=== PATIENT | female | born 1940 | race Caucasian/White ===

== ENCOUNTER 2019-11-02 13:13 | Inpatient (IN) ==
[2019-11-02 16:48] LABS: Basophils % 0.2 % (0.0-0.8); Eosinophils % 0.2 % (0.00-10.9); Hematocrit 30.9 VOL% (35.7-47.0); Hemoglobin 9.9 GM/DL (12.0-16.0); Immature Granulocytes % 0.8 %; Immature Granulocytes Absolute 0.05 #; Lymphocytes # 0.4 10*3/uL (1.4-4.0); Lymphocytes % 5.8 % (21.3-54.2); Mean Corpuscular Volume 83.1 FL (87-102); Monocytes % 0.9 % (1.7-12.7); Neutrophils % 92.1 % (38.7-73.9); Platelet Count 216 T/CUMM (130-400); Red Blood Count 3.72 MC/CUMM (3.8-5.5); Red Cell Distribution Width 14.5 % (9.3-17.3); White Blood Count 6.6 T/CUMM (4-12)
[2019-11-02 17:10] LABS: Albumin 2.5 G/DL (3.4-5.0); Bilirubin,Total 0.4 MG/DL (0.2-1.0); Calcium 8.7 MG/DL (8.5-10.1); Osmolality,Calculated 269.9 MOS/KG (273-304); Total Protein 6.6 G/DL (6.4-8.3)
[2019-11-02] MEDS ORDERED: ACETAMINOPHEN 325 MG TABLET PO PRN (17:22)
[2019-11-02] MEDS ORDERED: ONDANSETRON 4 MG/2 ML VIAL IV PRN (17:22)
[2019-11-02] MEDS: ENOXAPARIN 30 MG/0.3 ML SYRINGE SUBCUT SCH (17:39)
[2019-11-02 18:11] LABS: ABG Base Excess -9.9 MMOL/L (-2.5-2.5); ABG HCO3 16.5 MMOL/L (20-26); ABG Oxygen Saturation 96.7 % (95-100); ABG PCO2 27.4 MM HG (35-48); ABG PH 7.339 (7.35-7.45); ABG PO2 90.5 MM HG (80-95); ABG TCO2 13.5 MMOL/L (23-27)
[2019-11-02] MEDS ORDERED: POTASSIUM CHLORIDE 20 MEQ TABLET PO PRN (18:15)
[2019-11-02] MEDS ORDERED: GLUCAGON 1 MG VIAL IM PRN (18:15)
[2019-11-02] MEDS ORDERED: DEXTROSE 10% 250 ML BAG IV PRN (18:15)
[2019-11-02] MEDS ORDERED: MAGNESIUM SULF RIDER 2 GM in PREMIX 1 EACH IV PRN (18:15)
[2019-11-02] MEDS ORDERED: MAGNESIUM SULF RIDER 4 GM in PREMIX 1 EACH IV PRN (18:15)
[2019-11-02] MEDS ORDERED: INSULIN LISPRO 100 UNIT/ML ONE (19:07)
[2019-11-02] MEDS: INSULIN LISPRO 100 UNIT/ML SUBCUT SCH ×2 (19:12→22:03)
[2019-11-02 22:10] LABS: Band Neutrophils 2 % (0-10); Lymphocytes 3 % (20-55); Platelet Estimate Normal; Segmented Neutrophils 95 % (50-85); Total Cells Counted 100
[2019-11-03 00:33] LABS: Hematocrit 27.1 VOL% (35.7-47.0); Immature Granulocytes % 1.2 %; Immature Granulocytes Absolute 0.07 #; Lymphocytes # 0.6 10*3/uL (1.4-4.0); Lymphocytes % 10.7 % (21.3-54.2); Mean Corpuscular HGB Conc 33.2 GM/DL (32-36); Mean Corpuscular Volume 81.1 FL (87-102); Mean Platelet Volume 10.3 FL (9.6-12.0); Monocytes % 2.3 % (1.7-12.7); Neutrophils % 85.8 % (38.7-73.9); Platelet Count 197 T/CUMM (130-400); Red Blood Count 3.34 MC/CUMM (3.8-5.5); Red Cell Distribution Width 14.4 % (9.3-17.3); White Blood Count 5.6 T/CUMM (4-12)
[2019-11-03 01:33] LABS: Alanine Aminotransferase 16 U/L (13-56); Albumin 2.4 G/DL (3.4-5.0); Alkaline Phosphatase 82 U/L (45-117); Aspartate Amino Transferase 19 U/L (0-37); Bilirubin,Total < 0.39 MG/DL (0.2-1.0); Blood Urea Nitrogen 46 MG/DL (7-18); Calcium 8.4 MG/DL (8.5-10.1); Estimated Glom Filtration Rate 14 ML/MIN; Glucose 258 MG/DL (74-106); Osmolality,Calculated 267.8 MOS/KG (273-304); Total Protein 6.3 G/DL (6.4-8.3)
[2019-11-03 04:09] LABS: Apearance,Urine CLEAR (Clear); Bilirubin,Urine Negative (Negative); Blood, Urine Moderate mg/dL (Negative); Glucose,Urine (UA) 150 mg/dL (Negative); Hyaline Casts,Urine 11 /LPF (0-3); Ketones,Urine Negative (Negative); Mucus,Urine Occasional /LPF (Occasional); Nitrite,Urine Negative (Negative); Protein,Urine Negative; RBC,Urine 6 /HPF (0-4); Squamous Epithelial Cell,Urine Occasional /HPF (0-10); Urine Color Yellow (Yellow); Urine Urobilinogen < 2.0 EU/DL (0.2-1.0); WBC,Urine 5 /HPF (0-6)
[2019-11-03] MEDS: PANTOPRAZOLE 40 MG TABLET PO SCH (08:48)
[2019-11-03] MEDS: INSULIN LISPRO 100 UNIT/ML SUBCUT SCH ×4 (08:48→20:15)
[2019-11-03] MEDS: FUROSEMIDE 40 MG/4 ML VIAL IV SCH ×2 (08:49→15:51)
[2019-11-03] MEDS: carvediloL 3.125 MG TABLET PO SCH ×2 (12:49→16:49)
[2019-11-03] MEDS: ASPIRIN EC 81 MG TABLET PO SCH (12:49)
[2019-11-03] MEDS: ALBUTEROL/IPRATROPIUM 3 ML NEB RESP TX SCH ×2 (13:45→19:33)
[2019-11-03] MEDS: ENOXAPARIN 30 MG/0.3 ML SYRINGE SUBCUT SCH (16:49)
[2019-11-03] MEDS: SIMVASTATIN 20 MG TABLET PO SCH (20:15)
[2019-11-04] MEDS: ALBUTEROL/IPRATROPIUM 3 ML NEB RESP TX SCH ×4 (00:15→19:59)
[2019-11-04 04:52] LABS: Basophils % 0.1 % (0.0-0.8); Eosinophils % 0.2 % (0.00-10.9); Hematocrit 28.7 VOL% (35.7-47.0); Hemoglobin 9.4 GM/DL (12.0-16.0); Immature Granulocytes % 0.7 %; Immature Granulocytes Absolute 0.07 #; Lymphocytes # 1.2 10*3/uL (1.4-4.0); Lymphocytes % 11.4 % (21.3-54.2); Mean Corpuscular HGB Conc 32.8 GM/DL (32-36); Mean Corpuscular Volume 80.8 FL (87-102); Mean Platelet Volume 10.5 FL (9.6-12.0); Monocytes % 4.9 % (1.7-12.7); Neutrophils % 82.7 % (38.7-73.9); Platelet Count 236 T/CUMM (130-400); Red Blood Count 3.55 MC/CUMM (3.8-5.5); Red Cell Distribution Width 14.6 % (9.3-17.3); White Blood Count 10.5 T/CUMM (4-12)
[2019-11-04 05:18] LABS: Albumin 2.6 G/DL (3.4-5.0); Bilirubin,Total 0.9 MG/DL (0.2-1.0); Calcium 8.5 MG/DL (8.5-10.1); Osmolality,Calculated 275.4 MOS/KG (273-304); Total Protein 6.4 G/DL (6.4-8.3)
[2019-11-04] MEDS: INSULIN LISPRO 100 UNIT/ML SUBCUT SCH ×4 (08:49→20:37)
[2019-11-04] MEDS: ASPIRIN EC 81 MG TABLET PO SCH (08:51)
[2019-11-04] MEDS: PANTOPRAZOLE 40 MG TABLET PO SCH (08:51)
[2019-11-04] MEDS: FUROSEMIDE 40 MG/4 ML VIAL IV SCH ×2 (08:51→16:27)
[2019-11-04] MEDS: carvediloL 3.125 MG TABLET PO SCH ×2 (08:51→16:26)
[2019-11-04] MEDS ORDERED: metOLazone 5 MG TABLET PO SCH (12:00)
[2019-11-04] MEDS: ENOXAPARIN 30 MG/0.3 ML SYRINGE SUBCUT SCH (16:30)
[2019-11-04 20:23] LABS: % Iron Saturation 7.3 % (18-50)
[2019-11-04] MEDS: SIMVASTATIN 20 MG TABLET PO SCH (20:37)
[2019-11-05] MEDS: ALBUTEROL/IPRATROPIUM 3 ML NEB RESP TX SCH ×3 (00:53→13:07)
[2019-11-05 04:39] LABS: Basophils % 0.3 % (0.0-0.8); Eosinophils # 0.1 10*3/uL (0.0-0.87); Eosinophils % 1.2 % (0.00-10.9); Hematocrit 29.8 VOL% (35.7-47.0); Hemoglobin 9.5 GM/DL (12.0-16.0); Immature Granulocytes % 0.7 %; Immature Granulocytes Absolute 0.05 #; Lymphocytes # 1.3 10*3/uL (1.4-4.0); Lymphocytes % 17.9 % (21.3-54.2); Mean Corpuscular HGB Conc 31.9 GM/DL (32-36); Mean Corpuscular Volume 82.5 FL (87-102); Mean Platelet Volume 9.9 FL (9.6-12.0); Monocytes % 9.6 % (1.7-12.7); Neutrophils % 70.3 % (38.7-73.9); Platelet Count 231 T/CUMM (130-400); Red Blood Count 3.61 MC/CUMM (3.8-5.5); Red Cell Distribution Width 14.8 % (9.3-17.3); White Blood Count 7.2 T/CUMM (4-12)
[2019-11-05 04:46] LABS: Albumin 2.5 G/DL (3.4-5.0); Bilirubin,Total 0.9 MG/DL (0.2-1.0); Calcium 8.9 MG/DL (8.5-10.1); Total Protein 6.5 G/DL (6.4-8.3)
[2019-11-05] MEDS: FUROSEMIDE 40 MG/4 ML VIAL IV SCH (09:09)
[2019-11-05] MEDS: PANTOPRAZOLE 40 MG TABLET PO SCH (09:10)
[2019-11-05] MEDS: carvediloL 3.125 MG TABLET PO SCH (09:10)
[2019-11-05] MEDS: ASPIRIN EC 81 MG TABLET PO SCH (09:10)
[2019-11-05] MEDS: INSULIN LISPRO 100 UNIT/ML SUBCUT SCH ×2 (09:11→12:19)
[2019-11-05 12:03] VITALS: BP 150/65
[2019-11-05] MEDS ORDERED: carvediloL 6.25 MG TABLET PO SCH (21:00)
[2019-11-06] MEDS ORDERED: FUROSEMIDE 40 MG TABLET PO SCH (09:00)
== END 2019-11-05 15:14 | disposition home or self-care (01) | DRG 291 ==
LOC: N.TELEN 13:36 → SUATTDRO 14:53 → SUPCPDRO 14:53
PROVIDERS: ADMIT Internal Medicine; ATTEND Internal Medicine

== ENCOUNTER 2021-07-09 16:07 | Inpatient (IN) ==
[2021-07-09 17:01] LABS: Basophils % 0.4 % (0.0-0.8); Eosinophils # 0.2 10*3/uL (0.0-0.87); Eosinophils % 2.5 % (0.00-10.9); Hematocrit 33.8 VOL% (35.7-47.0); Hemoglobin 9.4 GM/DL (12.0-16.0); Immature Granulocytes % 0.5 %; Immature Granulocytes Absolute 0.04 #; Lymphocytes # 1.2 10*3/uL (1.4-4.0); Lymphocytes % 15.1 % (21.3-54.2); Mean Corpuscular HGB Conc 27.8 GM/DL (32-36); Mean Corpuscular Volume 79.2 FL (87-102); Monocytes % 8.2 % (1.7-12.7); Neutrophils % 73.3 % (38.7-73.9); Platelet Count 205 T/CUMM (130-400); Red Blood Count 4.27 MC/CUMM (3.8-5.5); Red Cell Distribution Width 18.1 % (9.3-17.3); White Blood Count 7.7 T/CUMM (4-12)
[2021-07-09 17:18] LABS: Bilirubin,Urine Negative (Negative); Blood, Urine Negative (Negative); Glucose,Urine (UA) Negative (Negative); Hyaline Casts,Urine 8 /LPF (0-3); Ketones,Urine Negative (Negative); Mucus,Urine Occasional /LPF (Occasional); Nitrite,Urine Negative (Negative); Protein,Urine Negative; RBC,Urine 1 /HPF (0-4); Squamous Epithelial Cell,Urine Occasional /HPF (0-10); Urine Appearance CLEAR (Clear); Urine Color Yellow (Yellow); Urine Specific Gravity 1.006 (1.001-1.035); Urine Urobilinogen < 2.0 EU/DL (0.2-1.0)
[2021-07-09 17:24] LABS: Albumin 3.2 G/DL (3.4-5.0); Bilirubin,Total 1.6 MG/DL (0.20-1.00); Calcium 9.8 MG/DL (8.5-10.1); Osmolality,Calculated 281.8 MOS/KG (273-304); Potassium 3.3 MMOL/L (3.5-5.1); Total Protein 7.3 G/DL (6.4-8.2)
[2021-07-09] MEDS ORDERED: DEXTROSE 50% 25 GM/50 ML VIAL IV PRN (20:21)
[2021-07-09] MEDS ORDERED: ACETAMINOPHEN 325 MG TABLET PO PRN (20:21)
[2021-07-09] MEDS ORDERED: GLUCAGON 1 MG VIAL IM PRN (20:21)
[2021-07-09] MEDS ORDERED: PNEUMOCOCCAL VACCINE (13 VALENT) 0.5 ML SYRINGE IM ONE (21:40)
[2021-07-09] MEDS: DOCUSATE SODIUM 100 MG CAPSULE PO SCH (23:09)
[2021-07-09] MEDS: ENOXAPARIN 30 MG/0.3 ML SYRINGE SUBCUT SCH (23:10)
[2021-07-09] MEDS: SODIUM CHLORIDE 0.9% 1,000 ML IV SCH (23:21)
[2021-07-10] MEDS: INSULIN REGULAR 100 UNIT/ML SUBCUT SCH ×4 (00:36→18:21)
[2021-07-10] MEDS: ALBUTEROL/IPRATROPIUM 3 ML NEB RESP TX SCH ×7 (00:44→23:00)
[2021-07-10] MEDS: ONDANSETRON 4 MG/2 ML VIAL IV PRN (05:00)
[2021-07-10 05:41] LABS: Albumin 2.7 G/DL (3.4-5.0); Calcium 9.4 MG/DL (8.5-10.1); Osmolality,Calculated 282.5 MOS/KG (273-304); Potassium 3.8 MMOL/L (3.5-5.1); Risk Ratio 2.05; Total Protein 6.8 G/DL (6.4-8.2); VLDL Cholesterol 12.8 MG/DL
[2021-07-10 05:58] LABS: Basophils % 0.5 % (0.0-0.8); Eosinophils # 0.3 10*3/uL (0.0-0.87); Eosinophils % 3.6 % (0.00-10.9); Hematocrit 31.4 VOL% (35.7-47.0); Hemoglobin 9.1 GM/DL (12.0-16.0); Immature Granulocytes % 0.3 %; Immature Granulocytes Absolute 0.02 #; Lymphocytes # 1.4 10*3/uL (1.4-4.0); Mean Corpuscular Volume 78.3 FL (87-102); Mean Platelet Volume 11.9 FL (9.6-12.0); Neutrophils % 65.6 % (38.7-73.9); Platelet Count 148 T/CUMM (130-400); Red Blood Count 4.01 MC/CUMM (3.8-5.5); Red Cell Distribution Width 18.2 % (9.3-17.3); White Blood Count 7.5 T/CUMM (4-12)
[2021-07-10] MEDS ORDERED: traMADol 50 MG TABLET PO PRN (07:34)
[2021-07-10] MEDS ORDERED: glyBURIDE 5 MG TABLET PO SCH (09:00)
[2021-07-10] MEDS ORDERED: FUROSEMIDE 40 MG TABLET PO SCH (09:00)
[2021-07-10] MEDS: prednisoLONE ACETATE 1% OPH SUSP 5 ML BOTTLE LEFT EYE SCH (09:53)
[2021-07-10] MEDS: PANTOPRAZOLE 40 MG TABLET PO SCH (09:54)
[2021-07-10] MEDS: carvediloL 3.125 MG TABLET PO SCH ×2 (09:54→22:23)
[2021-07-10] MEDS: sitaGLIPtin 25 MG TABLET PO SCH (09:54)
[2021-07-10] MEDS: DOCUSATE SODIUM 100 MG CAPSULE PO SCH ×2 (09:54→22:23)
[2021-07-10] MEDS: GABAPENTIN 400 MG CAPSULE PO SCH ×2 (09:54→22:22)
[2021-07-10] MEDS: MULTIVITAMIN (OCUVITE) TABLET PO SCH ×2 (09:54→22:22)
[2021-07-10] MEDS: FUROSEMIDE 20 MG/2 ML VIAL IV SCH ×2 (09:54→10:43)
[2021-07-10] MEDS: ASPIRIN EC 81 MG TABLET PO SCH (09:55)
[2021-07-10] MEDS ORDERED: GLUCAGON 1 MG VIAL IM PRN (16:02)
[2021-07-10] MEDS ORDERED: DEXTROSE 50% 25 GM/50 ML VIAL IV PRN (16:02)
[2021-07-10] MEDS: HYDROmorphone 2 MG/1 ML VIAL IV PRN (17:34)
[2021-07-10] MEDS: SIMVASTATIN 20 MG TABLET PO SCH (22:23)
[2021-07-10] MEDS: ENOXAPARIN 30 MG/0.3 ML SYRINGE SUBCUT SCH (22:24)
[2021-07-11] MEDS: HYDROmorphone 2 MG/1 ML VIAL IV PRN (00:14)
[2021-07-11] MEDS: INSULIN REGULAR 100 UNIT/ML SUBCUT SCH ×4 (00:21→18:22)
[2021-07-11] MEDS: ONDANSETRON 4 MG/2 ML VIAL IV PRN (03:11)
[2021-07-11] MEDS: SODIUM CHLORIDE 0.9% 1,000 ML IV SCH (03:16)
[2021-07-11] MEDS: ALBUTEROL/IPRATROPIUM 3 ML NEB RESP TX SCH ×5 (06:47→20:31)
[2021-07-11 06:53] LABS: Albumin 2.8 G/DL (3.4-5.0); Bilirubin,Direct 0.31 MG/DL (0.0-0.20); Bilirubin,Indirect 1.9 MG/DL (0.0-1.0); Bilirubin,Total 2.2 MG/DL (0.20-1.00); Total Protein 6.8 G/DL (6.4-8.2)
[2021-07-11] MEDS ORDERED: GLUCAGON 1 MG VIAL IM PRN (09:05)
[2021-07-11] MEDS ORDERED: DEXTROSE 50% 25 GM/50 ML VIAL IV PRN (09:05)
[2021-07-11] MEDS: carvediloL 3.125 MG TABLET PO SCH ×2 (09:24→22:36)
[2021-07-11] MEDS: FUROSEMIDE 40 MG/4 ML VIAL IV SCH ×2 (09:24→16:44)
[2021-07-11] MEDS: prednisoLONE ACETATE 1% OPH SUSP 5 ML BOTTLE LEFT EYE SCH (09:24)
[2021-07-11] MEDS: GABAPENTIN 400 MG CAPSULE PO SCH ×2 (09:25→22:35)
[2021-07-11] MEDS: PANTOPRAZOLE 40 MG TABLET PO SCH (09:25)
[2021-07-11] MEDS: sitaGLIPtin 25 MG TABLET PO SCH (09:25)
[2021-07-11] MEDS: DOCUSATE SODIUM 100 MG CAPSULE PO SCH ×2 (09:25→22:35)
[2021-07-11] MEDS: ISOSORBIDE MONONITRATE 30 MG TABLET PO SCH (09:25)
[2021-07-11] MEDS: ASPIRIN EC 81 MG TABLET PO SCH (09:25)
[2021-07-11] MEDS: MULTIVITAMIN (OCUVITE) TABLET PO SCH ×2 (09:25→22:35)
[2021-07-11] MEDS ORDERED: traMADol 50 MG TABLET PO PRN (16:22)
[2021-07-11] MEDS: ENOXAPARIN 30 MG/0.3 ML SYRINGE SUBCUT SCH (22:35)
[2021-07-11] MEDS: SIMVASTATIN 20 MG TABLET PO SCH (22:35)
[2021-07-12] MEDS: INSULIN REGULAR 100 UNIT/ML SUBCUT SCH ×4 (00:03→18:28)
[2021-07-12] MEDS: ALBUTEROL/IPRATROPIUM 3 ML NEB RESP TX SCH ×5 (00:23→16:24)
[2021-07-12] MEDS: HYDROmorphone 2 MG/1 ML VIAL IV PRN (02:16)
[2021-07-12] MEDS: ONDANSETRON 4 MG/2 ML VIAL IV PRN (02:19)
[2021-07-12] MEDS: MULTIVITAMIN (OCUVITE) TABLET PO SCH (09:15)
[2021-07-12] MEDS: GABAPENTIN 400 MG CAPSULE PO SCH (09:15)
[2021-07-12] MEDS: sitaGLIPtin 25 MG TABLET PO SCH (09:15)
[2021-07-12] MEDS: FUROSEMIDE 40 MG/4 ML VIAL IV SCH ×2 (09:15→17:05)
[2021-07-12] MEDS: DOCUSATE SODIUM 100 MG CAPSULE PO SCH (09:16)
[2021-07-12] MEDS: carvediloL 3.125 MG TABLET PO SCH (09:16)
[2021-07-12] MEDS: ISOSORBIDE MONONITRATE 30 MG TABLET PO SCH (09:16)
[2021-07-12] MEDS: PANTOPRAZOLE 40 MG TABLET PO SCH (09:16)
[2021-07-12] MEDS: ASPIRIN EC 81 MG TABLET PO SCH (09:16)
[2021-07-12] MEDS: prednisoLONE ACETATE 1% OPH SUSP 5 ML BOTTLE LEFT EYE SCH (10:36)
[2021-07-12] MEDS ORDERED: TEMAZEPAM 7.5 MG CAPSULE PO PRN (13:13)
[2021-07-12] MEDS ORDERED: KETOROLAC 15 MG/1 ML VIAL IV ONE (13:13)
[2021-07-12 17:29] VITALS: BP 128/68
[2021-07-12] MEDS ORDERED: FAMOTIDINE 20 MG TABLET PO SCH (21:00)
[2021-07-13] MEDS ORDERED: predniSONE 5 MG TABLET PO SCH (09:00)
== END 2021-07-12 18:50 | disposition home health service (06) | DRG 292 ==
LOC: N.EDINP 16:07 → N.ED 16:07 → N.5E 19:53
PROVIDERS: ADMIT Family Medicine; ATTEND Family Medicine

== ENCOUNTER 2021-07-19 13:23 | Inpatient (IN) ==
[2021-07-19] MEDS ORDERED: FUROSEMIDE 100 MG/10 ML VIAL IV STA (14:15)
[2021-07-19 15:37] LABS: Bacteria,Urine Occasional /HPF (Few); Bilirubin,Urine Negative (Negative); Blood, Urine Negative (Negative); Glucose,Urine (UA) Negative (Negative); Hyaline Casts,Urine 18 /LPF (0-3); Ketones,Urine Negative (Negative); Mucus,Urine Occasional /LPF (Occasional); Nitrite,Urine Negative (Negative); Protein,Urine Negative; RBC,Urine 1 /HPF (0-4); Squamous Epithelial Cell,Urine Occasional /HPF (0-10); Urine Appearance CLEAR (Clear); Urine Color Yellow (Yellow); Urine Specific Gravity 1.011 (1.001-1.035); Urine Urobilinogen < 2.0 EU/DL (0.2-1.0)
[2021-07-19] MEDS ORDERED: GLUCAGON 1 MG VIAL IM PRN (16:00)
[2021-07-19] MEDS ORDERED: POTASSIUM CHLORIDE 20 MEQ TABLET PO PRN (16:00)
[2021-07-19] MEDS ORDERED: MAGNESIUM SULF RIDER 2 GM/50 ML PREMIX IV PRN (16:00)
[2021-07-19] MEDS ORDERED: MAGNESIUM SULF RIDER 4 GM/100 ML PREMIX IV PRN (16:00)
[2021-07-19] MEDS ORDERED: DEXTROSE 50% 25 GM/50 ML VIAL IV PRN (16:00)
[2021-07-19 16:04] LABS: Albumin 2.9 G/DL (3.4-5.0); Basophils % 0.5 % (0.0-0.8); Bilirubin,Total 1.7 MG/DL (0.20-1.00); Eosinophils # 0.2 10*3/uL (0.0-0.87); Eosinophils % 2.4 % (0.00-10.9); Hematocrit 31.5 VOL% (35.7-47.0); Immature Granulocytes % 0.3 %; Immature Granulocytes Absolute 0.02 #; Lymphocytes # 0.9 10*3/uL (1.4-4.0); Lymphocytes % 14.4 % (21.3-54.2); Mean Corpuscular HGB Conc 28.6 GM/DL (32-36); Mean Corpuscular Volume 76.6 FL (87-102); Mean Platelet Volume 11.6 FL (9.6-12.0); Monocytes % 11.1 % (1.7-12.7); Neutrophils % 71.3 % (38.7-73.9); Osmolality,Calculated 287.8 MOS/KG (273-304); Platelet Count 198 T/CUMM (130-400); Potassium 4.6 MMOL/L (3.5-5.1); Red Blood Count 4.11 MC/CUMM (3.8-5.5); Red Cell Distribution Width 18.5 % (9.3-17.3); Total Protein 7.3 G/DL (6.4-8.2); White Blood Count 6.3 T/CUMM (4-12)
[2021-07-19 16:06] LABS: Anisocytosis 2+; Elliptocytes Few; Hypochromasia 1+; Macrocytosis 1+; Microcytosis 2+; Platelet Estimate Normal; Poikilocytosis Few; Polychromasia 1+
[2021-07-19] MEDS: INSULIN LISPRO 100 UNIT/ML SUBCUT SCH ×2 (17:05→21:01)
[2021-07-19] MEDS: carvediloL 3.125 MG TABLET PO SCH (21:00)
[2021-07-19] MEDS: FAMOTIDINE 20 MG TABLET PO SCH (21:00)
[2021-07-19] MEDS: GABAPENTIN 400 MG CAPSULE PO SCH (21:00)
[2021-07-19] MEDS: MULTIVITAMIN (OCUVITE) TABLET PO SCH (21:00)
[2021-07-19] MEDS: SIMVASTATIN 20 MG TABLET PO SCH (21:01)
[2021-07-19] MEDS: ONDANSETRON 4 MG/2 ML VIAL IV PRN (21:03)
[2021-07-19] MEDS: traMADol 50 MG TABLET PO PRN (22:25)
[2021-07-20] MEDS: MORPHINE 2 MG/1 ML SYRINGE IV PRN ×2 (03:54→19:34)
[2021-07-20 06:24] LABS: Basophils % 0.7 % (0.0-0.8); Eosinophils # 0.2 10*3/uL (0.0-0.87); Hematocrit 28.5 VOL% (35.7-47.0); Hemoglobin 8.2 GM/DL (12.0-16.0); Immature Granulocytes % 0.4 %; Immature Granulocytes Absolute 0.02 #; Lymphocytes # 1.1 10*3/uL (1.4-4.0); Lymphocytes % 19.6 % (21.3-54.2); Mean Corpuscular HGB Conc 28.8 GM/DL (32-36); Monocytes % 15.4 % (1.7-12.7); Neutrophils % 60.9 % (38.7-73.9); Platelet Count 161 T/CUMM (130-400); Red Cell Distribution Width 19.3 % (9.3-17.3); White Blood Count 5.7 T/CUMM (4-12)
[2021-07-20 06:41] LABS: Hypochromasia 1+; Microcytosis 2+; Ovalocytes Few; Polychromasia Slight; Target Cells Slight
[2021-07-20 06:42] LABS: Platelet Estimate Adequate
[2021-07-20 07:32] LABS: Risk Ratio 2.03
[2021-07-20 07:39] LABS: Albumin 2.6 G/DL (3.4-5.0); Bilirubin,Direct 0.45 MG/DL (0.0-0.20); Bilirubin,Indirect 1.1 MG/DL (0.0-1.0); Bilirubin,Total 1.5 MG/DL (0.20-1.00); Calcium 9.7 MG/DL (8.5-10.1); Osmolality,Calculated 294.3 MOS/KG (273-304); Potassium 3.7 MMOL/L (3.5-5.1); Total Protein 6.6 G/DL (6.4-8.2)
[2021-07-20] MEDS: INSULIN LISPRO 100 UNIT/ML SUBCUT SCH ×4 (08:14→22:22)
[2021-07-20] MEDS: GABAPENTIN 400 MG CAPSULE PO SCH ×2 (09:44→21:07)
[2021-07-20] MEDS: ISOSORBIDE MONONITRATE 30 MG TABLET PO SCH (09:44)
[2021-07-20] MEDS: glyBURIDE 5 MG TABLET PO SCH (09:44)
[2021-07-20] MEDS: carvediloL 3.125 MG TABLET PO SCH ×2 (09:44→21:07)
[2021-07-20] MEDS: sitaGLIPtin 25 MG TABLET PO SCH (09:44)
[2021-07-20] MEDS: MULTIVITAMIN (OCUVITE) TABLET PO SCH ×2 (09:44→21:07)
[2021-07-20] MEDS: ASPIRIN EC 81 MG TABLET PO SCH (09:44)
[2021-07-20] MEDS: prednisoLONE ACETATE 1% OPH SUSP 5 ML BOTTLE LEFT EYE SCH (09:45)
[2021-07-20] MEDS: FUROSEMIDE 40 MG/4 ML VIAL IV SCH ×2 (09:45→17:03)
[2021-07-20] MEDS: ONDANSETRON 4 MG/2 ML VIAL IV PRN ×2 (13:35→19:35)
[2021-07-20] MEDS: SIMVASTATIN 20 MG TABLET PO SCH (21:07)
[2021-07-20] MEDS: FAMOTIDINE 20 MG TABLET PO SCH (21:07)
[2021-07-21] MEDS: ONDANSETRON 4 MG/2 ML VIAL IV PRN (00:15)
[2021-07-21] MEDS: MORPHINE 2 MG/1 ML SYRINGE IV PRN (00:16)
[2021-07-21 06:23] LABS: Calcium 10.1 MG/DL (8.5-10.1); Osmolality,Calculated 288.4 MOS/KG (273-304); Potassium 3.7 MMOL/L (3.5-5.1)
[2021-07-21 07:21] LABS: Basophils # 0.1 10*3/uL (0.0-0.2); Basophils % 0.6 % (0.0-0.8); Eosinophils # 0.2 10*3/uL (0.0-0.87); Eosinophils % 2.2 % (0.00-10.9); Hematocrit 32.8 VOL% (35.7-47.0); Immature Granulocytes % 0.4 %; Immature Granulocytes Absolute 0.04 #; Lymphocytes # 1.4 10*3/uL (1.4-4.0); Lymphocytes % 15.5 % (21.3-54.2); Mean Corpuscular HGB Conc 28.7 GM/DL (32-36); Mean Platelet Volume 11.1 FL (9.6-12.0); Monocytes % 12.5 % (1.7-12.7); Neutrophils % 68.8 % (38.7-73.9); Platelet Count 165 T/CUMM (130-400); Red Blood Count 4.26 MC/CUMM (3.8-5.5); Red Cell Distribution Width 18.4 % (9.3-17.3); White Blood Count 8.9 T/CUMM (4-12)
[2021-07-21 07:23] LABS: Hemoglobin 9.4 GM/DL (12.0-16.0)
[2021-07-21 07:38] LABS: Hypochromasia 2+; Microcytosis 2+; Ovalocytes Few; Platelet Estimate Adequate
[2021-07-21] MEDS: FUROSEMIDE 40 MG/4 ML VIAL IV SCH ×2 (09:06→16:54)
[2021-07-21] MEDS: INSULIN LISPRO 100 UNIT/ML SUBCUT SCH ×4 (09:31→21:15)
[2021-07-21] MEDS: carvediloL 3.125 MG TABLET PO SCH ×2 (09:32→21:15)
[2021-07-21] MEDS: GABAPENTIN 400 MG CAPSULE PO SCH ×2 (09:32→21:15)
[2021-07-21] MEDS: MULTIVITAMIN (OCUVITE) TABLET PO SCH ×2 (09:32→21:15)
[2021-07-21] MEDS: glyBURIDE 5 MG TABLET PO SCH (09:32)
[2021-07-21] MEDS: ISOSORBIDE MONONITRATE 30 MG TABLET PO SCH (09:32)
[2021-07-21] MEDS: ASPIRIN EC 81 MG TABLET PO SCH (09:32)
[2021-07-21] MEDS: sitaGLIPtin 25 MG TABLET PO SCH (09:32)
[2021-07-21] MEDS: prednisoLONE ACETATE 1% OPH SUSP 5 ML BOTTLE LEFT EYE SCH (09:32)
[2021-07-21] MEDS: traMADol 50 MG TABLET PO PRN (10:00)
[2021-07-21] MEDS: CLORAZEPATE 3.75 MG TABLET PO SCH ×2 (14:42→21:56)
[2021-07-21] MEDS: ONDANSETRON 4 MG/2 ML VIAL IV SCH ×2 (15:17→21:56)
[2021-07-21] MEDS: FAMOTIDINE 20 MG TABLET PO SCH (21:15)
[2021-07-21] MEDS: SIMVASTATIN 20 MG TABLET PO SCH (21:15)
[2021-07-22] MEDS: ONDANSETRON 4 MG/2 ML VIAL IV SCH ×4 (04:10→22:15)
[2021-07-22] MEDS: CLORAZEPATE 3.75 MG TABLET PO SCH ×3 (05:57→22:15)
[2021-07-22] MEDS: FUROSEMIDE 40 MG/4 ML VIAL IV SCH ×2 (08:01→15:29)
[2021-07-22] MEDS: INSULIN LISPRO 100 UNIT/ML SUBCUT SCH ×4 (08:06→20:51)
[2021-07-22] MEDS: carvediloL 3.125 MG TABLET PO SCH ×2 (09:23→20:51)
[2021-07-22] MEDS: GABAPENTIN 400 MG CAPSULE PO SCH ×2 (09:23→20:51)
[2021-07-22] MEDS: ASPIRIN EC 81 MG TABLET PO SCH (09:24)
[2021-07-22] MEDS: MULTIVITAMIN (OCUVITE) TABLET PO SCH ×2 (09:24→20:50)
[2021-07-22] MEDS: sitaGLIPtin 25 MG TABLET PO SCH (09:24)
[2021-07-22] MEDS: glyBURIDE 5 MG TABLET PO SCH (09:24)
[2021-07-22] MEDS: prednisoLONE ACETATE 1% OPH SUSP 5 ML BOTTLE LEFT EYE SCH (09:25)
[2021-07-22] MEDS: ISOSORBIDE MONONITRATE 30 MG TABLET PO SCH (09:25)
[2021-07-22] MEDS: MULTIVITAMIN (CENTRUM) TABLET PO SCH (09:31)
[2021-07-22] MEDS: SIMVASTATIN 20 MG TABLET PO SCH (20:50)
[2021-07-22] MEDS: FAMOTIDINE 20 MG TABLET PO SCH (20:51)
[2021-07-23] MEDS: traMADol 50 MG TABLET PO PRN ×2 (00:23→12:05)
[2021-07-23] MEDS: TEMAZEPAM 7.5 MG CAPSULE PO PRN (01:25)
[2021-07-23] MEDS: ONDANSETRON 4 MG/2 ML VIAL IV SCH ×4 (03:44→21:42)
[2021-07-23] MEDS: INSULIN LISPRO 100 UNIT/ML SUBCUT SCH ×4 (08:07→21:43)
[2021-07-23 08:30] LABS: Albumin 2.7 G/DL (3.4-5.0); Bilirubin,Total 1.5 MG/DL (0.20-1.00); Calcium 9.5 MG/DL (8.5-10.1); Osmolality,Calculated 286.4 MOS/KG (273-304); Potassium 3.5 MMOL/L (3.5-5.1); Total Protein 6.8 G/DL (6.4-8.2)
[2021-07-23] MEDS: ISOSORBIDE MONONITRATE 30 MG TABLET PO SCH (08:55)
[2021-07-23] MEDS: MULTIVITAMIN (OCUVITE) TABLET PO SCH ×2 (08:55→21:39)
[2021-07-23] MEDS: sitaGLIPtin 25 MG TABLET PO SCH (08:56)
[2021-07-23] MEDS: glyBURIDE 5 MG TABLET PO SCH (08:56)
[2021-07-23] MEDS: carvediloL 3.125 MG TABLET PO SCH ×2 (08:57→21:40)
[2021-07-23] MEDS: GABAPENTIN 400 MG CAPSULE PO SCH ×2 (08:57→21:40)
[2021-07-23] MEDS: CLORAZEPATE 3.75 MG TABLET PO SCH ×3 (08:57→21:40)
[2021-07-23] MEDS: MULTIVITAMIN (CENTRUM) TABLET PO SCH (08:57)
[2021-07-23] MEDS: ASPIRIN EC 81 MG TABLET PO SCH (08:57)
[2021-07-23] MEDS: FUROSEMIDE 40 MG/4 ML VIAL IV SCH ×2 (09:07→17:21)
[2021-07-23] MEDS: prednisoLONE ACETATE 1% OPH SUSP 5 ML BOTTLE LEFT EYE SCH (09:08)
[2021-07-23] MEDS ORDERED: LACTULOSE 20 GM/30 ML UDCUP PO ONE (09:50)
[2021-07-23] MEDS: SIMVASTATIN 20 MG TABLET PO SCH (21:39)
[2021-07-23] MEDS: FAMOTIDINE 20 MG TABLET PO SCH (21:40)
[2021-07-24] MEDS: TEMAZEPAM 7.5 MG CAPSULE PO PRN (01:24)
[2021-07-24] MEDS: CLORAZEPATE 3.75 MG TABLET PO SCH ×2 (05:30→15:28)
[2021-07-24 05:43] LABS: Albumin 2.7 G/DL (3.4-5.0); Bilirubin,Total 1.7 MG/DL (0.20-1.00); Calcium 9.8 MG/DL (8.5-10.1); Osmolality,Calculated 284.5 MOS/KG (273-304); Potassium 3.7 MMOL/L (3.5-5.1); Total Protein 6.5 G/DL (6.4-8.2)
[2021-07-24] MEDS: ONDANSETRON 4 MG/2 ML VIAL IV SCH ×2 (06:18→09:24)
[2021-07-24] MEDS: INSULIN LISPRO 100 UNIT/ML SUBCUT SCH ×2 (08:05→12:36)
[2021-07-24] MEDS ORDERED: LACTULOSE 20 GM/30 ML UDCUP PO PRN (08:39)
[2021-07-24] MEDS: glyBURIDE 5 MG TABLET PO SCH (09:16)
[2021-07-24] MEDS: MULTIVITAMIN (OCUVITE) TABLET PO SCH (09:16)
[2021-07-24] MEDS: GABAPENTIN 400 MG CAPSULE PO SCH (09:17)
[2021-07-24] MEDS: ASPIRIN EC 81 MG TABLET PO SCH (09:17)
[2021-07-24] MEDS: carvediloL 3.125 MG TABLET PO SCH (09:17)
[2021-07-24] MEDS: ISOSORBIDE MONONITRATE 30 MG TABLET PO SCH (09:17)
[2021-07-24] MEDS: sitaGLIPtin 25 MG TABLET PO SCH (09:17)
[2021-07-24] MEDS: MULTIVITAMIN (CENTRUM) TABLET PO SCH (09:17)
[2021-07-24] MEDS: FUROSEMIDE 40 MG/4 ML VIAL IV SCH (09:21)
[2021-07-24] MEDS: prednisoLONE ACETATE 1% OPH SUSP 5 ML BOTTLE LEFT EYE SCH (09:24)
[2021-07-24] MEDS: traMADol 50 MG TABLET PO PRN (11:48)
[2021-07-24 12:30] VITALS: BP 122/62
[2021-07-24] MEDS ORDERED: QUEtiapine 25 MG TABLET PO SCH (21:00)
== END 2021-07-24 15:51 | DRG 291 ==
LOC: N.ED 13:23 → N.EDINP 16:00 → N.TELEN 18:18
PROVIDERS: ADMIT Family Medicine; ATTEND Family Medicine